=== PATIENT | female | born 1995 | race Caucasian/White ===

== ENCOUNTER 2020-08-05 02:19 | Emergency (ER) | payer OTHER ==
[~2020-08-05 02:19] MED LIST: BACTROBAN NASAL1 GM TOP; KEFLEX500 MG PO
[2020-08-05 03:28] LABS: BASOPHIL 0.7 % (0-2); EOSINOPHIL 1.3 % (0-5); HCT 41.6 % (37.0-47.0); HGB 14.3 g/dl (12.5-16.0); LYMPHOCYTE 22.7 % (15-48); MCH 31.4 pg (25.0-31.0); MCHC 34.4 g/dL (32.0-36.0); MCV 91.4 fL (78.0-100.0); MPV 9.5 fL (6.0-9.5); NEUTROPHIL 68.6 % (41-80); NRBC 0; PLT 352 K/uL (150-400); RBC 4.55 M/uL (4.20-5.40); RDW 12.7 % (11.5-14.0); WBC 14.8 K/uL (4.0-10.5)
[2020-08-05 03:29] LABS: BILIRUBIN NEGATIVE (NEGATIVE); BLOOD NEGATIVE Ery/uL (NEGATIVE); CLARITY CLEAR (CLEAR); COLOR YELLOW (YELLOW); GLUCOSE (U) NORMAL (NORMAL); LEUKOCYTES NEGATIVE Leu/uL (NEGATIVE); NITRITE NEGATIVE (NEGATIVE); PROTEIN NEGATIVE (NEGATIVE); UROBILINOGEN 0.2 mg/dL (0.2-1.0)
[2020-08-05 03:37] LABS: MONOSPOT (MONONUCLEOSIS) NEGATIVE (NEGATIVE)
[2020-08-05 03:45] LABS: ALBUMIN 3.6 g/dL (3.4-5.0); BILIRUBIN - TOTAL 0.2 mg/dL (0.2-1.0); BUN/CREAT RATIO (CALC) 17.6 RATIO; CREATININE 0.51 mg/dL (0.51-0.95); GLOBULIN (CALCULATION) 4.5 g/dL; POTASSIUM 3.9 mmol/L (3.5-5.1); TOTAL PROTEIN 8.1 g/dL (6.4-8.2)
[2020-08-05 03:50] LABS: LACTIC ACID 1.9 mmol/L (0.4-1.9)
[2020-08-05 04:06] LABS: CORONAVIRUS 2019 SARS-COV-2 NEGATIVE (NEGATIVE); INFLUENZA A NAA NEGATIVE (NEGATIVE)
[2020-08-05] MEDS ORDERED: ONDANSETRON ODT4 MG SL (04:23)
[2020-08-05] MEDS ORDERED: TESSALON PERLE100 MG PO (04:23)
[2020-08-05] MEDS ORDERED: BROMFED DM COU473 ML PO (04:23)
[2020-08-05] MEDS ORDERED: MEDROL 4MG DOSEP4 MG PO (04:23)
[2020-08-05] MEDS ORDERED: ZPAK PO (04:23)
== END 2020-08-05 04:37 | disposition home or self-care (01) ==
LOC: FER 02:19
PROVIDERS: Emergency Medicine Emergency Medical Services
DX: J06.9 Acute upper respiratory infection, unspecified (principal); R11.10 Vomiting, unspecified; R19.7 Diarrhea, unspecified; R10.84 Generalized abdominal pain; Z86.16 Personal history of COVID-19; F17.210 Nicotine dependence, cigarettes, uncomplicated; Z20.822 Contact with and (suspected) exposure to COVID-19
CPT/HCPCS: 36415; 71046; 80053; 81003; 83605; 85025; 85379; 86308; 87880; 93005; J1100; J2405; J7030; U0002

== ENCOUNTER 2020-09-21 18:46 | Emergency (ER) | payer OTHER ==
[~2020-09-21 18:46] MED LIST changes: +BROMFED DM COU473 ML PO; +MEDROL 4MG DOSEP4 MG PO; +ONDANSETRON ODT4 MG SL; +TESSALON PERLE100 MG PO; +ZPAK PO
[2020-09-21 19:31] LABS: BASOPHIL 0.5 % (0-2); EOSINOPHIL 0.9 % (0-5); HCT 40.8 % (37.0-47.0); HGB 14.3 g/dl (12.5-16.0); LYMPHOCYTE 14.3 % (15-48); MCH 32.2 pg (25.0-31.0); MCV 91.9 fL (78.0-100.0); MONOCYTE 8.5 % (0-12); MPV 10.4 fL (6.0-9.5); NEUTROPHIL 75.2 % (41-80); NRBC 0; PLT 267 K/uL (150-400); RBC 4.44 M/uL (4.20-5.40); WBC 16.5 K/uL (4.0-10.5)
[2020-09-21 19:38] LABS: BILIRUBIN NEGATIVE (NEGATIVE); BLOOD NEGATIVE Ery/uL (NEGATIVE); CLARITY CLEAR (CLEAR); COLOR YELLOW (YELLOW); GLUCOSE (U) NORMAL (NORMAL); LEUKOCYTES NEGATIVE Leu/uL (NEGATIVE); NITRITE NEGATIVE (NEGATIVE); PROTEIN NEGATIVE (NEGATIVE); UROBILINOGEN 0.2 mg/dL (0.2-1.0); pH 6.5 (5.0-9.0)
[2020-09-21 19:40] LABS: INR 1.05 (0.9-1.2)
[2020-09-21 19:41] LABS: HCG (URINE) SCREEN NEGATIVE (NEGATIVE)
[2020-09-21 19:45] LABS: PTT 30.1 SECONDS (22.2-34.7)
[2020-09-21 19:56] LABS: CKMB 1.1 ng/mL (0.0-3.6)
[2020-09-21 19:59] LABS: ALBUMIN 3.9 g/dL (3.4-5.0); ALKALINE PHOSHATASE 68 U/L (46-116); ALT 37 U/L (14-59); AST 39 U/L (15-37); BILIRUBIN - DIRECT <0.05 mg/dL (0.00-0.20); BILIRUBIN - TOTAL 0.2 mg/dL (0.2-1.0); BUN 12 mg/dL (7-18); BUN/CREAT RATIO (CALC) 18.8 RATIO; CHLORIDE 107 mmol/L (98-107); CO2 (BICARBONATE) 21 mmol/L (21-32); CREATININE 0.64 mg/dL (0.51-0.95); GLOBULIN (CALCULATION) 3.5 g/dL; GLUCOSE 94 mg/dL (74-106); LIPASE 383 U/L (73-393); POTASSIUM 4.1 mmol/L (3.5-5.1); TOTAL PROTEIN 7.4 g/dL (6.4-8.2)
== END 2020-09-21 23:15 | disposition other institution (70) ==
LOC: FER 18:46
PROVIDERS: Student in an Organized Health Care Education/Training Program
DX: S36.200A Unspecified injury of head of pancreas, initial encounter (principal); K85.90 Acute pancreatitis without necrosis or infection, unspecified; F17.210 Nicotine dependence, cigarettes, uncomplicated; W55.12XA Struck by horse, initial encounter
CPT/HCPCS: 36415; 71045; 80048; 80076; 81003; 82553; 83690; 84484; 84703; 85025; 85610; 85730; J2405; J2550; J3010; J7030; Q9967

== ENCOUNTER 2021-09-14 20:34 | Emergency (ER) | payer OTHER ==
[2021-09-14 22:08] LABS: BASOPHIL 0.9 % (0-2); EOSINOPHIL 4.1 % (0-5); HCT 41.7 % (37.0-47.0); HGB 14.3 g/dl (12.5-16.0); LYMPHOCYTE 26.1 % (15-48); MCH 32.4 pg (25.0-31.0); MCHC 34.3 g/dL (32.0-36.0); MCV 94.3 fL (78.0-100.0); MONOCYTE 14.1 % (0-12); NEUTROPHIL 54.5 % (41-80); NRBC 0; PLT 224 K/uL (150-400); RBC 4.42 M/uL (4.20-5.40); RDW 13.1 % (11.5-14.0); WBC 8.8 K/uL (4.0-10.5)
[2021-09-14 22:25] LABS: BUN/CREAT RATIO (CALC) 15.8 RATIO; CREATININE 0.57 mg/dL (0.51-0.95); POTASSIUM 3.5 mmol/L (3.5-5.1)
[2021-09-14 22:42] LABS: CORONAVIRUS 2019 SARS-COV-2 NEGATIVE (NEGATIVE); INFLUENZA A NAA NEGATIVE (NEGATIVE)
== END 2021-09-14 23:07 | disposition home or self-care (01) ==
LOC: FER 20:34
PROVIDERS: Nurse Practitioner Family
DX: J06.9 Acute upper respiratory infection, unspecified (principal); Z20.822 Contact with and (suspected) exposure to COVID-19; Z28.310 Unvaccinated for COVID-19
CPT/HCPCS: 36415; 80048; 85025; J1885; J2405; J7030; U0002